=== PATIENT | female | born 1990 | race Hispanic/Latino ===

== ENCOUNTER 2016-08-18 13:01 | Emergency (ER) | payer MEDICAID, OTHER ==
[2016-08-18 13:01] VITALS: BMI 42.0
[2016-08-18 13:33] VITALS: PULSE 88; RESP 18; TEMP 98.4
--- NOTE | 2016-08-18 14:04 | ED PDOC ---
HPI: General Adult Time Seen by Provider: 08/18/16 13:49 Chief Complaint (Nursing): Abdominal Pain Chief Complaint (Provider): abdominal pain History Per: Patient History/Exam Limitations: no limitations Additional Complaint(s): 26yo female complaining of mid abdominal pain radiating down. It has been intermittent for a week but now worsening. For past 3 days there is diarrhea associated with eating. No nausea or vomit. No fever, hematochezia. Patient notes menstrual period is late. Past Medical History Reviewed: Historical Data, Nursing Documentation, Vital Signs Vital Signs: Last Vital Signs Temp 98.4 F 08/18/16 13:27 Pulse 88 08/18/16 13:27 Resp 18 08/18/16 13:27 BP 122/72 08/18/16 13:27 Pulse Ox 100 08/18/16 14:11 - Medical History PMH: Diabetes, Hypercholesterolemia, Sleep Apnea (Has C PAP at home for sleep but does not use it) - Surgical History Surgical History: Endoscopy Other surgeries: gastric bypass - Family History Family History: States: Unknown Family Hx - Immunization History Hx Influenza Vaccination: Yes - Home Medications Home Medications: Ambulatory Orders Medication Instructions Recorded Metformin Hydrochloride [Metformin 500 mg PO BID 02/23/14 HCl] Famotidine [Pepcid] 20 mg PO BID #30 tab 06/04/14 - Allergies Allergies/Adverse Reactions: Allergies Allergy/AdvReac Type Severity Reaction Status Date / Time No Known Allergies Allergy Verified 06/04/14 17:34 Review of Systems ROS Statement: Except As Marked, All Systems Reviewed And Found Negative Constitutional: Negative for: Fever Gastrointestinal: Positive for: Abdominal Pain, Diarrhea. Negative for: Nausea , Vomiting Physical Exam - Reviewed Nursing Documentation Reviewed: Yes Vital Signs Reviewed: Yes - Physical Exam Appears: Positive for: Well, Non-toxic, No Acute Distress Head Exam: Positive for: ATRAUMATIC, NORMAL INSPECTION, NORMOCEPHALIC Skin: Positive for: Warm, Dry Eye Exam: Positive for: EOMI, PERRL Cardiovascular/Chest: Positive for: Regular Rate, Rhythm Respiratory: Positive for: Normal Breath Sounds. Negative for: Rales, Rhonchi, Wheezing Gastrointestinal/Abdominal: Positive for: Soft, Tenderness (periumbilical, right lower quadrant, left lower quadrant). Negative for: Other (Psoa's) - ECG O2 Sat by Pulse Oximetry: 100 (RA) Pulse Ox Interpretation: Normal Medical Decision Making Medical Decision Makin negative for Additional Comments - Additional Comments Additional Comments: Scribe Attestation: Documented by Juan Diego Eldridge acting as a scribe for Jessica Delgado PA-C. Provider Scribe Attestation: All medical record entries made by the Scribe were at my direction and personally dictated by me. I have reviewed the chart and agree that the record accurately reflects my personal performance of the history, physical exam, medical decision making, and the department course for this patient. I have also personally directed, reviewed, and agree with the discharge instructions and disposition.
[2016-08-18] MEDS ORDERED: Iohexol 240 (50 ml) PO ONE (14:27)
[2016-08-18] MEDS ORDERED: Iohexol 240 (50 ml) ONE (14:29)
[2016-08-18 15:08] LABS: BASO % 0.4 % (0.0-2.0); EOS # 0.1 K/uL (0.0-0.7); EOS % 1.5 % (0.0-4.0); HEMATOCRIT 29.9 % (34.0-47.0); LYMPH # 2.3 K/uL (1.0-4.3); LYMPH % 34.5 % (20.0-40.0); MEAN CELL VOLUME 74.3 fl (81.0-99.0); MEAN CORPUSCULAR HEMOGLOBIN 23.8 pg (27.0-31.0); MEAN CORPUSCULAR HGB CONC 32.1 g/dL (33.0-37.0); MEAN PLATELET VOLUME 8.6 fl (7.2-11.7); MONO # 0.4 K/uL (0.0-0.8); MONO % 5.9 % (0.0-10.0); NEUT # 3.9 K/uL (1.8-7.0); NEUT % 57.7 % (50.0-75.0); NRBC % 0.2 % (0.0-0.0); RED CELL DISTRIBUTION WIDTH 16.1 % (11.5-14.5); WHITE BLOOD COUNT 6.8 K/uL (4.8-10.8)
[2016-08-18 15:12] LABS: ALB/GLOB RATIO 1.3 (1.0-2.1); ALKALINE PHOSPHATASE 66 U/L (38-126); ALT/SGPT 30 U/L (9-52); AST/SGOT 36 U/L (14-36); BILIRUBIN,TOTAL 0.5 mg/dl (0.2-1.3); BLOOD UREA NITROGEN 14 mg/dl (7-17); CALCIUM 8.9 mg/dL (8.4-10.2); CARBON DIOXIDE 22 mmol/L (22-30); CHLORIDE 109 mmol/L (98-107); GFR AFRICAN-AMERICAN > 60; GLUCOSE,RANDOM 86 mg/dL (65-105); LIPASE 88 U/L (23-300); POTASSIUM 4.2 MMOL/L (3.6-5.0); SODIUM 142 mmol/l (132-148); TOTAL PROTEIN 7.4 G/DL (6.3-8.2)
[2016-08-18 15:56] LABS: RBC URINE 2 /hpf (0-3); URINE BILIRUBIN NEGATIVE (NEGATIVE); URINE BLOOD NEGATIVE (NEGATIVE); URINE COLOR YELLOW (YELLOW); URINE GLUCOSE (UA) NEG (Normal); URINE KETONE NEGATIVE (NEGATIVE); URINE LEUKOCYTE ESTERASE NEG Leu/uL (Negative); URINE PROTEIN NEGATIVE (NEGATIVE); URINE UROBILINOGEN 0.2-1.0 mg/dL (0.2-1.0); WBC URINE 1 /hpf (0-5)
[2016-08-18] MEDS ORDERED: Sodium Chloride 0.9% 50 ML IV ONE (16:52)
[2016-08-18] MEDS ORDERED: Iohexol 300 100 ML IJ ONE (16:52)
--- NOTE | 2016-08-18 18:01 | CT ---
PROCEDURE: CT Abdomen and pelvis dated 08/18/2016 HISTORY: marielena-umbilical/RLQ pain COMPARISON: None. TECHNIQUE: Contrast dose: 90 cc Omnipaque 300 contrast material Radiation dose: Total exam DLP = 847.64 mGy-cm. This CT exam was performed using one or more of the following dose reduction techniques: Automated exposure control, adjustment of the mA and/or kV according to patient size, and/or use of iterative reconstruction technique. FINDINGS: LOWER THORAX: Some minimal linear atelectasis seen both posterior sulci. No evidence of consolidation effusion or basilar pneumothorax. LIVER: Liver exhibits normal size measuring nearly 16 cm in CC dimension. Mild diffuse fatty hepatic infiltration. No obvious hepatic mass collection or calcification. GALLBLADDER AND BILE DUCTS: Gallbladder is physiologically distended. No evidence of intraluminal gallbladder calculi. PANCREAS: Unremarkable. No gross lesion or ductal dilatation. SPLEEN: Spleen exhibits normal size and attenuation pattern without mass collection or calcification. ADRENALS: No adrenal lesions. KIDNEYS AND URETERS: Kidneys exhibit symmetric nephrograms. No evidence of nephrolithiasis or hydronephrosis. VASCULATURE: No evidence of abdominal aortic aneurysm. BOWEL: Evaluation of the bowel is limited due to incomplete opacification. Metallic clips on and suture along the stomach. Clinical correlation surgical history. Visualized loops of small bowel exhibit normal contour and caliber. No evidence of acute mechanical small bowel obstruction. Moderate amount stool seen throughout the cecum and at ascending as well as proximal transverse colon. The remaining colon is relatively collapsed. APPENDIX: Normal-appearing CT appendix best seen on coronal image number [id number]. No evidence to suggest acute appendicitis There are multiple small to medium-sized mesenteric lymph nodes consistent with mesenteric adenitis PERITONEUM: Unremarkable. No free fluid. No free air. LYMPH NODES: Unremarkable. No enlarged lymph nodes. BLADDER: Urinary bladder is physiologically distended. No evidence of intraluminal urinary bladder calculi. REPRODUCTIVE: Large left adnexal cyst measuring approximately 4.1 x 3.5 cm. Pelvic ultrasound could be performed confirm BONES: Osseous structures intact. OTHER FINDINGS: None. IMPRESSION: Findings consistent with mesenteric adenitis. Postoperative changes of gastric bypass. No evidence of acute appendicitis. Large left adnexal cyst. Mild fatty hepatic infiltration.
[2016-08-18 18:42] VITALS: BP 110/68; O2SAT 99
== END 2016-08-18 18:42 | disposition home or self-care (01) ==
LOC: H.ER 13:01
DX: R10.31 Right lower quadrant pain (principal); I88.0 Nonspecific mesenteric lymphadenitis; R19.7 Diarrhea, unspecified; E11.9 Type 2 diabetes mellitus without complications; Z79.84 Long term (current) use of oral hypoglycemic drugs